=== PATIENT | male | born 1950 | race American Indian/Alaskan Native ===

== ENCOUNTER 2024-12-28 11:05 | Day surgery (SDC) | payer BC, OTHER ==
[~2024-12-28] VITALS: Ht 182.9 cm; Wt 72.7 kg
[~2024-12-28 11:05] MED LIST: ADULT LOW DOSE81 MG PO; ATORVASTATIN CA40 MG PO; HYDROCHLOROTHIA25 MG PO; IBLOOD GLUCOSE TEST STRIP 1 EA TEST VI PRN; LACTATED RINGER'S 1,000 ML IV SCH; LIDOCAINE HCL 1% 5 ML SDV INJ ONE; LISINOPRIL40 MG PO; MIDAZOLAM HCL 5 MG/5 ML VIAL IV PRN; TAMSULOSIN HCL0.4 MG PO; fentaNYL citrate 100 MCG/2 ML VIAL IV PRN
[2024-12-28 11:29] VITALS: BP 149/77
[2024-12-28] MEDS ORDERED: MIDAZOLAM HCL 5 MG/5 ML VIAL ONE (14:06)
[2024-12-28] MEDS ORDERED: fentaNYL citrate 100 MCG/2 ML VIAL ONE (14:06)
--- NOTE | 2024-12-28 15:04 | NUR ---
12/28/24 1504 Sheets,Colleen 1454 PT ARRIVED TO PACU ON 3L VIA MASK, PT WAKES EASILY AND DENIES CONCERNS. PT ENCOURAGED TO PASS GAS NEEDED. 1455 O2 TURNED OFF PT PASSING SOME GAS. 1500 MD AT BEDSIDE TALKING TO PT. VSS.
[2024-12-28 15:16] VITALS: BP 151/83
--- NOTE | 2024-12-29 09:06 | OR ---
[facility] [address] [place], [place] [address] Signed DATE OF OPERATION: 12/28/2024 SURGEON: Leonardo Arevalo MD PREOPERATIVE DIAGNOSIS: Colon screening. POSTOPERATIVE DIAGNOSES: 1. Sigmoid and left-sided diverticulosis. 2. Polyps x2 (proximal left colon and sigmoid). 3. Internal hemorrhoids. PROCEDURES: Total colonoscopy to cecum with cold snare polypectomy x1, cold morcellation polypectomy x1. INDICATION: This 74-year-old [place] man is a patient of Selina Hernandez of [facility]. The patient has never undergone colon evaluation of any type. He is referred for that purpose. He has no current symptoms of bleeding, diarrhea, or constipation and no known family history of colon cancer. He understands the risk of colonoscopy including, but not limited to bleeding, infection, and perforation and wished to proceed. FINDINGS: The prep was good. Complete colonoscopy was undertaken of the cecum. There were numerous diverticula of the sigmoid and left colon. Scattered diverticula more proximally. He had two polyps, one a small sessile polyp at the proximal descending colon and another slightly larger at about 1 cm in the sigmoid, which was excised with cold snare technique. Retroflexed view confirmed internal hemorrhoids. DESCRIPTION OF PROCEDURE: The patient was brought to the endoscopy suite and placed in lateral decubitus position, given intravenous sedation to the point of slurred speech and nystagmus. Digital rectal examination was normal. An Olympus video colonoscope was passed in the rectum and manipulated throughout the colon noting numerous diverticula of the sigmoid and left colon. Scope was ultimately passed to the cecum. The ileocecal valve and appendiceal orifice were normal. The scope was withdrawn. Examination was undertaken. Upon withdrawal of scope, a small polyp was noted at the proximal descending colon, which was sessile and no doubt Electronically Signed By: LEONARDO AREVALO MD 12/29/24 0906 PATIENT NAME: VIVIENNE TAYLOR SR OPERATIVE REPORT DATE OF : 54 REPORT #: [id number] PHYSICIAN: LEONARDO AREVALO MD PCP: SELINA HERNANDEZ PAC REPORT IS CONFIDENTIAL AND NOT TO BE RELEASED WITHOUT AUTHORIZATION [facility] [address] [place], [place] [address] Signed adenomatous. This was excised with cold morcellation technique. Further withdrawal showed numerous diverticula in the sigmoid and left colon and a polyp was noted near the orifice of sigmoid diverticulum. This was slightly larger, possibly as big as a centimeter. This was excised with cold snare technique and additional biopsies of the base of it taken as well. Further withdrawal allowed for retroflexed view of the rectum, which showed internal hemorrhoids. The scope was straightened, withdrawn, and removed. The patient was taken to recovery room in good condition. CONCLUDING DIAGNOSES: Polyps x2, internal hemorrhoids, and diverticulosis sigmoid left and elsewhere. PLAN: Would recommend repeat colonoscopy in 10 years, sooner if symptoms should develop and recommend high-fiber diet. He will return to the ongoing care of the Selina Hernandez [facility]. MD BERTO Davalos/SHARON /[id number] cc: Selina Hernandez Copies: SELINA HERNANDEZ PAC ~ Electronically Signed By: LEONARDO AREVALO MD 12/29/24 0906 PATIENT NAME: BRANDONVIVIENNE OPERATIVE REPORT DATE OF : 54 REPORT #: [id number] PHYSICIAN: LEONARDO AREVALO MD PCP: SELINA HERNANDEZ PAC REPORT IS CONFIDENTIAL AND NOT TO BE RELEASED WITHOUT AUTHORIZATION
--- NOTE | 2025-01-01 15:53 | PATH ---
[facility] [address] [place], [place] [address] Signed SPECIMEN(S): A DESCENDING COLON POLYP SPECIMEN(S): B SIGMOID POLYP SPECIMEN SOURCE: A. DESCENDING COLON POLYP B. SIGMOID POLYP CLINICAL HISTORY: Screening FINAL PATHOLOGIC DIAGNOSIS: A. Descending colon polyp: - Tubular adenoma. - Negative for high-grade dysplasia or malignancy. B. Sigmoid colon polyp: - Tubular adenoma. - Negative for high-grade dysplasia or malignancy. [facility] MICROSCOPIC EXAMINATION: Histologic sections of all submitted blocks are examined by light microscopy. These findings, together with the gross examination, support the pathologic diagnosis. GROSS DESCRIPTION: A. The specimen, labeled and designated "Vega, descending colon polyp," is received in formalin and consists of two nevarez soft tissue fragments, ranging from 0.2-0.3 cm. Entirely submitted in (A1). B. The specimen, labeled and designated "Vega, sigmoid polyp," is received in formalin and consists of four nevarez soft tissue fragments, ranging from 0.2-0.8 cm. Entirely submitted in (B1). VB (under the direct supervision of a pathologist) The Gross Description was prepared using a voice recognition system. The report was reviewed for accuracy; however, sound-alike word errors, addition and/or deletions may occur. If there is any question about this report, please contact Client Services. ADDITIONAL NOTES: Immunohistochemical and/or in situ hybridization studies if performed in this case included appropriate positive controls that reacted as expected. This test was developed and its performance PATIENT NAME: VEGAVIVIENNE SR PATHOLOGY DATE OF : 54 REPORT #: [id number] PHYSICIAN: SHILPA JONES PCP: RAUL HERNANDEZ PAC REPORT IS CONFIDENTIAL AND NOT TO BE RELEASED WITHOUT AUTHORIZATION [facility] [address] [place], [place] [address] Signed characteristics determined by [facility]. It has not been cleared or approved by the U.S. Food and Drug Administration. The FDA has determined that such clearance or approval is not necessary. This test is used for clinical purposes. It should not be regarded as investigational or for research. [facility] is certified under the Clinical Laboratory Improvement Amendments of 1988 (CLIA) as qualified to perform high complexity clinical laboratory testing. PERFORMING LABORATORY: Technical component was performed by [facility], [address] [place] [id number] (CLIA# [id number]). Professional interpretation was performed by [facility], [address] [place] [id number] (CLIA#: [id number]). Diagnostician: Parker Arias MD Pathologist Electronically Signed 01/01/2025 Copies: ~ PATIENT NAME: VIVIENNE TAYLOR SR PATHOLOGY DATE OF : 54 REPORT #: [id number] PHYSICIAN: SHILPA PATHOLOGY PCP: RAUL HERNANDEZ PAC REPORT IS CONFIDENTIAL AND NOT TO BE RELEASED WITHOUT AUTHORIZATION
== END 2024-12-28 15:28 | disposition home or self-care (01) ==
LOC: OPS 11:05 → DS 12:00 → OPS 15:28
PROVIDERS: ATTEND Surgery
PROC: 0DBN8ZX Excision of Sigmoid Colon, Via Natural or Artificial Opening Endoscopic, Diagnostic (ICD-10-PCS; 2024-12-28)
PROC: 0DBM8ZX Excision of Descending Colon, Via Natural or Artificial Opening Endoscopic, Diagnostic (ICD-10-PCS; principal; 2024-12-28 12:00)
DX: Z12.11 Encounter for screening for malignant neoplasm of colon (principal); D12.4 Benign neoplasm of descending colon; D12.5 Benign neoplasm of sigmoid colon; K57.30 Diverticulosis of large intestine without perforation or abscess without bleeding; K64.8 Other hemorrhoids; I10 Essential (primary) hypertension; E78.5 Hyperlipidemia, unspecified
CPT/HCPCS: 99153; G0500; J2250; J3010; J7121